=== PATIENT | male | born 1975 | race Two or more races ===

== ENCOUNTER 2021-06-07 17:01 | Emergency (ER) | payer OTHER ==
[~2021-06-07] VITALS: Ht 175.3 cm; Wt 83.9 kg
[2021-06-07] MEDS ORDERED: ZYRTEC10 MG PO (19:44)
[2021-06-07] MEDS ORDERED: NAPROXEN500 MG PO (19:44)
[2021-06-07] MEDS ORDERED: MUCINEX DM ER1 EAC1 PO (19:44)
== END 2021-06-07 20:35 | disposition home or self-care (01) ==
LOC: ER 17:01
DX: H61.21 Impacted cerumen, right ear (principal); J06.9 Acute upper respiratory infection, unspecified

== ENCOUNTER 2022-04-04 17:19 | Emergency (ER) | payer OTHER ==
[~2022-04-04] VITALS: Ht 175.3 cm; Wt 83.9 kg
[~2022-04-04 17:19] MED LIST: ACETAMINOPHEN650 M2; MUCINEX DM ER1 EAC1 PO; NAPROXEN500 MG PO; ZYRTEC10 MG PO
[2022-04-04] MEDS ORDERED: NORFLEX100MG PO (20:35)
[2022-04-04] MEDS ORDERED: DICLOFENAC POTA50 MG PO (20:35)
== END 2022-04-04 20:46 | disposition home or self-care (01) ==
LOC: ER 17:19
DX: M79.652 Pain in left thigh (principal); M25.552 Pain in left hip; M70.72 Other bursitis of hip, left hip